=== PATIENT | male | born 1970 | race Caucasian/White ===

== ENCOUNTER 2019-11-16 09:16 | Emergency (ER) | payer BC, OTHER ==
[2019-11-16 09:32] VITALS: BMI 32.5
--- NOTE | 2019-11-16 10:05 | PDOC ---
History of Present Illness - General Chief Complaint: Shortness of Breath Stated Complaint: DIFFICULTY BREATHING Time Seen by Provider: 11/16/19 09:42 - History of Present Illness Initial Comments: 11/16/19 10:02 CHIEF COMPLAINT: SOB HISTORY OF PRESENT ILLNESS: 48 yo with hx of sleep apnea presents to ED with concern for SOB. 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 Patient states he has the "breathing machine" but doesn't always use it and was not using it overnight. He did try to use the machine after but "felt like nothing could get in" and was unable to go back to sleep afterwards due to be feeling anxious he wasn't able to breathe. Denies coughing, fever, runny nose "but probably congestion." Denies any current chest pain or SOB. Primary care doctor: Dr. Ku. No recent travel or sick contacts. PAST MEDICAL HISTORY: sleep apnea FAMILY HISTORY: Denies SOCIAL HISTORY: Denies tobacco, alcohol, illicit drug use. SURGICAL HISTORY: Denies ALLERGIES: No known drug allergies REVIEW OF SYSTEMS General/Constitutional: Denies fever or chills. Denies weakness, weight change. HEENT: Denies change in vision. Denies ear pain or discharge. Denies sore throat. Cardiovascular: Denies chest pain or shortness of breath. Respiratory: SOB when waking this morning, now asymptomatic. Denies cough, wheezing, or hemoptysis. Gastrointestinal: Denies nausea, vomiting, diarrhea or constipation. Denies rectal bleeding. Genitourinary: Denies dysuria, frequency, or change in urination. Musculoskeletal: Denies joint or muscle swelling or pain. Denies neck or back pain. Skin and breasts: Denies rash or easy bruising. Neurologic: Denies headache, vertigo, loss of consciousness, or loss of sensation. Psychiatric: Denies depression or anxiety. PHYSICAL EXAM General Appearance: Well-appearing, appropriately dressed. No apparent distress , no intoxication. HEENT: Swollen turbinates. EOMI, PERRLA, normal voice, TMs normal, pharynx normal. No conjunctival pallor. No photophobia, scleral icterus. Neck: Supple. Trachea midline. No tenderness, rigidity, carotid bruit, stridor , lymphadenopathy, or thyromegaly. Respiratory/Chest: Lungs CTAB. No shortness of breath, chest tenderness, respiratory distress, accessory muscle use. No crackles, rales, rhonchi, stridor , wheezing, dullness Cardiovascular: RRR. S1, S2. No JVD, murmur, bradycardia, tachycardia. Vascular Pulses: Dorsalis-Pedis (R): 2+, Dorsalis-Pedis (L): 2+ Gastrointestinal/Abdominal: Normal bowel sounds. Abdomen soft, non-distended. No tenderness or rebound tenderness. No organomegaly, pulsatile mass, guarding , hernia, hepatomegaly, splenomegaly. Lymphatic: No adenopathy, tenderness. Musculoskeletal/Extremities: Normal inspection. FROM of all extremities, normal capillary refill. Pelvis Stable. No CVA tenderness. No tenderness to extremities, pedal edema, swelling, erythema or deformity. Integumentary: Appropriate color, dry, warm. 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 Fully oriented, alert. Appropriate mood/affect. Motor strength 5/5. No appreciable EOM palsy, facial droop or sensory deficit. Past History - Past Medical History Allergies/Adverse Reactions: Allergies Allergy/AdvReac Type Severity Reaction Status Date / Time No Known Drug Allergies Allergy Verified 11/16/19 09:26 Home Medications: Ambulatory Orders Atorvastatin Calcium [Lipitor] 20 mg PO HS 11/16/19 Esomeprazole Magnesium [Nexium 24Hr] 40 mg PO DAILY 11/16/19 Lisinopril/Hydrochlorothiazide [Lisinopril-Hctz 20-12.5 mg Tab] 1 each PO DAILY 11/16/19 Varenicline Tartrate [Chantix] 1 tab PO BID PRN 11/16/19 Anemia: No Asthma: No Cancer: No Cardiac Disorders: No CVA: No COPD: No CHF: No Dementia: No Diabetes: No GI Disorders: No Disorders: Yes (GERD) HTN: No Hypercholesterolemia: Yes Kidney Stones: Yes Liver Disease: No Seizures: No Thyroid Disease: No Other medical history: sleep apnea - Surgical History Abdominal Surgery: No Appendectomy: No Cardiac Surgery: No Cholecystectomy: No Lung Surgery: No Neurologic Surgery: No Orthopedic Surgery: No - Psycho Social/Smoking Cessation Hx Smoking History: Current some day smoker Have you smoked in the past 12 months: Yes Number of Cigarettes Smoked Daily: 15 Information on smoking cessation initiated: No 'Breaking Loose' booklet given: 06/07/12 Hx Alcohol Use: Yes ("4 times a week") Drug/Substance Use Hx: No Substance Use Type: None Hx Substance Use Treatment: No *Physical Exam - Vital Signs Last Vital Signs Temp Pulse Resp BP Pulse Ox 98.4 F 73 18 133/79 97 11/16/19 09:30 11/16/19 09:30 11/16/19 09:30 11/16/19 09:30 11/16/19 09:30 ED Treatment Course - RADIOLOGY Radiology Studies Ordered: Category Date Time Status CHEST PA & LAT [RAD] Stat Radiology 11/16/19 09:43 Ordered Medical Decision Making - Medical Decision Making 11/17/19 12:37 48 yo with hx of sleep apnea presents to ED with concern for SOB. -ekg -cxr EKG normal, CXR negative. Patient requires f/u with PCP and sleep center for continued monitoring of sleep apnea. Advised patient to take medication as prescribed and follow up with PCP within the week. Advised patient of signs and symptoms for return to ED. Patient verbalized understanding and agrees to plan. Discharge - Discharge Information Problems reviewed: Yes Clinical Impression/Diagnosis: Sleep apnea Qualifiers: Sleep apnea type: unspecified type Qualified Code(s): G47.30 - Sleep apnea, unspecified Condition: Stable Disposition: HOME - Admission No - Follow up/Referral Referrals: Cristóbal Ku MD [Primary Care Provider] - Cheng Pascual MD, MD [Staff Physician] - - Patient Discharge Instructions Patient Printed Discharge Instructions: DI for Obstructive Sleep Apnea -- Adult - Post Discharge Activity
[2019-11-16 11:33] VITALS: BP 130/68; PULSE 75; TEMP 98.5
--- NOTE | 2019-11-16 13:28 | EKG ---
Test Reason : Blood Pressure : / mmHG Vent. Rate : 071 BPM Atrial Rate : 071 BPM P-R Int : 196 ms QRS Dur : 098 ms QT Int : 362 ms P-R-T Axes : 054 044 044 degrees QTc Int : 393 ms NORMAL SINUS RHYTHM NORMAL ECG WHEN COMPARED WITH ECG OF 20-JUL-2009 10:53, NO SIGNIFICANT CHANGE WAS FOUND Confirmed by MD JEREMIAS, MARGARITO ([id number]) on 11/16/2019 1:28:43 PM Referred By: Confirmed By:MARGARITO MCDOWELL MD
== END 2019-11-16 11:33 | disposition home or self-care (01) ==
LOC: JER 09:16
DX: G47.30 Sleep apnea, unspecified (principal); E78.00 Pure hypercholesterolemia, unspecified; K21.9 Gastro-esophageal reflux disease without esophagitis; F17.210 Nicotine dependence, cigarettes, uncomplicated; Z87.442 Personal history of urinary calculi
CPT/HCPCS: 71046-TC-FY; 93005; 93010; 99282-25

== ENCOUNTER 2019-11-24 10:18 | Emergency (ER) | payer OTHER ==
[2019-11-24 10:28] VITALS: BMI 32.5
--- NOTE | 2019-11-24 10:45 | PDOC ---
History of Present Illness - General Chief Complaint: Shortness of Breath Stated Complaint: SHORTNESS OF BREATH Time Seen by Provider: 11/24/19 10:32 - History of Present Illness Initial Comments: HPI: 48yo M with PMH of obstructive sleep apnea, HTN, HLD, GERD, presenting with shortness of breath. Patient states he woke up this morning feeling like he "couldn't take a full breath." No cough or chest pain. Per chart review, patient presented one week ago for similar complaint. EKG and CXR at that time did not indicate acute pathology. 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 Was instructed to use his CPAP but has had difficulties with adherence to this sleep regimen stating the mask does not feel well and that it feels like it is suffocating him when he uses it. Denies sick contacts or recent travel. No hemoptysis, no recent surgical history , no recent immobilization, no hormone use, no history of DVT or PE. No fevers or chills. PCP: Dr. Ku ROS: Constitutional: no fever, no chills HEENT: no throat pain, no dysphagia Cardiovascular: no chest pain, no palpitations Respiratory: no cough, +shortness of breath Gastrointestinal: no abdominal pain, no diarrhea Genitourinary: no dysuria, no hematuria Musculoskeletal: no myalgia, no arthralgia Skin: no rash, no itching Neurologic: no headache, no weakness PE: General: Awake, alert, and fully oriented, in no acute distress Head: No signs of trauma Eyes: EOMI, sclera anicteric ENT: Moist mucus membranes Neck: Normal ROM, supple Lungs: Lungs clear, Normal breath sounds Cardio: Regular rhythm, S1 and S2 present Abdomen: Soft, nontender. No guarding, no rebound, no masses Extremities: Normal range of motion, Distal pulses present, No calf tenderness SKIN: Warm, Dry, normal turgor Neurologic: Cranial nerves II through XII grossly intact. Normal speech ED Course/MDM: DDX including but not limited to hypercarbia due to RAMIRO with CPAP non-adherence , ACS, PE, PNA, anemia, metabolic derangement Labs, EKG, CXR 11/24/19 10:44 EKG: rate 89, QTc 411, NSR, no acute change from EKG on 11/16/19 11/24/19 11:23 CBC WBC 8.4 K/mm3 (4.0-10.0) 11/24/19 11:25 RBC 4.61 M/mm3 (4.00-5.60) 11/24/19 11:25 Hgb 14.0 GM/dL (11.7-16.9) 11/24/19 11:25 Hct 41.0 % (35.4-49) 11/24/19 11:25 MCV 88.9 fl (80-96) 11/24/19 11:25 MCH 30.4 pg (25.7-33.7) 11/24/19 11:25 MCHC 34.2 g/dl (32.0-35.9) 11/24/19 11:25 RDW 13.3 % (11.9-15.9) 11/24/19 11:25 Plt Count 250 K/MM3 (134-434) D 11/24/19 11:25 MPV 8.3 fl (7.5-11.1) 11/24/19 11:25 Absolute Neuts (auto) 6.2 K/mm3 (1.5-8.0) 11/24/19 11:25 Neutrophils % 73.2 % (42.8-82.8) 11/24/19 11:25 Lymphocytes % 19.1 % (8-40) D 11/24/19 11:25 Monocytes % 6.7 % (3.8-10.2) 11/24/19 11:25 Eosinophils % 0.5 % (0-4.5) 11/24/19 11:25 Basophils % 0.5 % (0-2.0) 11/24/19 11:25 Nucleated RBC % 0 % (0-0) 11/24/19 11:25 No leukocytosis CMP Sodium 139 mmol/L (136-145) 11/24/19 11:25 Potassium 4.1 mmol/L (3.5-5.1) 11/24/19 11:25 Chloride 105 mmol/L (98-107) 11/24/19 11:25 Carbon Dioxide 25 mmol/L (21-32) 11/24/19 11:25 Anion Gap 9 MMOL/L (8-16) 11/24/19 11:25 BUN 14.7 mg/dL (7-18) 11/24/19 11:25 Creatinine 0.9 mg/dL (0.55-1.3) 11/24/19 11:25 Est GFR (CKD-EPI)AfAm 115.83 11/24/19 11:25 Est GFR (CKD-EPI)NonAf 99.94 11/24/19 11:25 Random Glucose 127 mg/dL (74-106) H 11/24/19 11:25 Calcium 8.8 mg/dL (8.5-10.1) 11/24/19 11:25 Total Bilirubin 0.4 mg/dL (0.2-1) 11/24/19 11:25 AST 27 U/L (15-37) 11/24/19 11:25 ALT 48 U/L (13-61) 11/24/19 11:25 Alkaline Phosphatase 106 U/L (45-117) 11/24/19 11:25 Troponin I < 0.02 ng/ml (0.00-0.05) 11/24/19 11:25 B-Natriuretic Peptide 14.5 pg/ml (5-125) 11/24/19 11:25 Total Protein 7.1 g/dl (6.4-8.2) 11/24/19 11:25 Albumin 3.9 g/dl (3.4-5.0) 11/24/19 11:25 Electrolytes unremarkable Cr normal BNP normal POCUS unremarkable; with grossly normal LV function CXR as read by radiology: " EXAM#: TYPE/EXAM: RESULT: [id number] RAD/CHEST PA LAT Chest: Shortness of breath 2 views of the chest reveal clear well aerated lungs, slight rotation to the left, normally some sharp angles. The bones and soft tissues are intact. An acute process is not seen. Since 11/16/2019 there is no change of an adverse nature. Impression: No acute chest pathology. Reported By: Ian Oquendo MD 11/24/19 1467 " Given workup, low suspicion for acute cardiopulmonary pathology Patient's sensation of shortness of breath likely due to RAMIRO with CPAP non- adherence Instructed patient to use CPAP To follow up with PCP and sleep medicine specialist Return precautions Stable for discharge 11/24/19 12:42 Past History - Past Medical History Allergies/Adverse Reactions: Allergies Allergy/AdvReac Type Severity Reaction Status Date / Time No Known Drug Allergies Allergy Verified 11/24/19 10:28 Home Medications: Ambulatory Orders Atorvastatin Calcium [Lipitor] 20 mg PO HS 11/16/19 Esomeprazole Magnesium [Nexium 24Hr] 40 mg PO DAILY 11/16/19 Lisinopril/Hydrochlorothiazide [Lisinopril-Hctz 20-12.5 mg Tab] 1 each PO DAILY 11/16/19 Varenicline Tartrate [Chantix] 1 tab PO BID PRN 11/16/19 Anemia: No Asthma: No Cancer: No Cardiac Disorders: No CVA: No COPD: No CHF: No Dementia: No Diabetes: No GI Disorders: No Disorders: Yes (GERD) HTN: No Hypercholesterolemia: Yes Kidney Stones: Yes Liver Disease: No Seizures: No Thyroid Disease: No - Surgical History Abdominal Surgery: No Appendectomy: No Cardiac Surgery: No Cholecystectomy: No Lung Surgery: No Neurologic Surgery: No Orthopedic Surgery: No - Psycho Social/Smoking Cessation Hx Smoking History: Never smoked Have you smoked in the past 12 months: Yes Number of Cigarettes Smoked Daily: 15 'Breaking Loose' booklet given: 06/07/12 Hx Alcohol Use: Yes ("4 times a week") Drug/Substance Use Hx: No Substance Use Type: None Hx Substance Use Treatment: No *Physical Exam - Vital Signs Last Vital Signs Temp Pulse Resp BP Pulse Ox 97.3 F L 96 H 18 115/83 98 11/24/19 10:26 11/24/19 10:26 11/24/19 10:26 11/24/19 10:26 11/24/19 10:26 ED Treatment Course - LABORATORY CBC & Chemistry Diagram: 11/24/19 11:25 11/24/19 11:25 Discharge - Discharge Information Problems reviewed: Yes Clinical Impression/Diagnosis: Sleep apnea Qualifiers: Sleep apnea type: unspecified type Qualified Code(s): G47.30 - Sleep apnea, unspecified Condition: Stable Disposition: HOME - Follow up/Referral Referrals: Cristóbal Ku MD [Staff Physician] - Cheng Pascual MD, MD [Staff Physician] - - Patient Discharge Instructions Patient Printed Discharge Instructions: DI for Continuous Positive Airway Pressure Additional Instructions: You came into the emergency department after feeling short of breath. Lab work , Xray, and EKG did not indicate acute pathology. You must use your CPAP machine whenever you go to sleep. Continue taking home medications as prescribed by your physician. Follow up with your primary care physician within 72 hours. Call and make an appointment to further evaluate your weakness. Your workup is not complete until you do so. Immediate medical attention is required if you have: any chest pain, palpitations, shortness of breath, severe headaches, changes in vision, episodes of fainting, focal numbness or weakness, any severe abdominal pain, any black tarry stool, or any new or concerning symptoms. If you think you are having an emergency, call for emergency medical services or present to the emergency department right away. - Post Discharge Activity
[2019-11-24 11:47] LABS: VENOUS PC02 40.6 mmHg (38-52); VENOUS PH 7.39 (7.31-7.41)
[2019-11-24 11:48] LABS: BASO % 0.5 % (0-2.0); EOS % 0.5 % (0-4.5); LYMPH % 19.1 % (8-40); MCH 30.4 pg (25.7-33.7); MCHC 34.2 g/dl (32.0-35.9); MEAN CELL VOLUME 88.9 fl (80-96); MEAN PLT VOLUME 8.3 fl (7.5-11.1); MONO % 6.7 % (3.8-10.2); NEUT % 73.2 % (42.8-82.8); PLATELET COUNT 250 K/MM3 (134-434); RBC 4.61 M/mm3 (4.00-5.60); RDW 13.3 % (11.9-15.9); WHITE BLOOD COUNT 8.4 K/mm3 (4.0-10.0)
[2019-11-24 11:58] LABS: VENOUS PO2 < 49 mmHg (28-48)
[2019-11-24 12:11] LABS: ALBUMIN 3.9 g/dl (3.4-5.0); BILIRUBIN,TOTAL 0.4 mg/dL (0.2-1); BLOOD UREA NITROGEN 14.7 mg/dL (7-18); CALCIUM 8.8 mg/dL (8.5-10.1); CREATININE 0.9 mg/dL (0.55-1.3); N-TERMINAL BNP 14.5 pg/ml (5-125); POTASSIUM 4.1 mmol/L (3.5-5.1); TOT PROT 7.1 g/dl (6.4-8.2)
[2019-11-24 13:11] VITALS: BP 116/72; PULSE 84; TEMP 98.2
--- NOTE | 2019-11-24 16:58 | EKG ---
Test Reason : Blood Pressure : / mmHG Vent. Rate : 089 BPM Atrial Rate : 089 BPM P-R Int : 198 ms QRS Dur : 098 ms QT Int : 338 ms P-R-T Axes : 032 036 048 degrees QTc Int : 411 ms NORMAL SINUS RHYTHM NORMAL ECG WHEN COMPARED WITH ECG OF 16-NOV-2019 09:30, NO SIGNIFICANT CHANGE WAS FOUND Confirmed by DANNY FIELD MD ([id number]) on 11/24/2019 4:57:40 PM Referred By: Confirmed By:DANNY FIELD MD
--- NOTE | 2019-11-24 17:25 | PDOC ---
Documentation entered by Marian Aguilar SCRIBE, acting as scribe for Gautam Han MD. Gautam Han MD: This documentation has been prepared by the Lauren mar Joy, SCRIBE, under my direction and personally reviewed by me in its entirety. I confirm that the documentation accurately reflects all work, treatment, procedures, and medical decision making performed by me. 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 As per patient, he woke up in the morning feeling like he could not take in a full breath. The symptoms lasted for less than an hour. Patient has been to the ED x1 week prior for similar symptoms. Patient states he was not compliant in using his CPAP mask last night as he went to bed too late. He has been wearing it for a week with no SOB. No sick contacts or recent travel. Denies fevers, chills, cough or chest pain. Denies any other symptoms. Allergies: NKDA PCP: Dr. Workman - Physicial Exam PE: 11/24/19 10:55 GENERAL: Awake, alert, and fully oriented, in no acute distress EYES: PERRLA, EOMI, sclera anicteric, conjunctiva clear ENT: Oropharynx clear without exudates. Moist mucosa NECK: Normal ROM, supple, no lymphadenopathy, JVD, or masses LUNGS: Breath sounds equal, clear to auscultation bilaterally. No wheezes, and no crackles HEART: Regular rate and rhythm, normal S1 and S2, no murmurs, rubs or gallops ABDOMEN: Soft, nontender, normoactive bowel sounds. No guarding, no rebound. No masses EXTREMITIES: Normal range of motion, no edema. No clubbing or cyanosis. No cords , erythema, or tenderness NEUROLOGICAL: Normal speech, cranial nerves intact, equal strength and sensation b/l SKIN: Warm, Dry, normal turgor, no rashes or lesions noted. - Medical Decision Making 11/24/19 13:33 48-year-old male with a history of obstructive sleep apnea, newly on CPAP for the last week presents to the emergency department with shortness of breath this morning when he woke up that has since resolved. The sxs lasted for less than 1 minute. Patient admits to not putting his CPAP mask on last night because he went to sleep too late. He denies any current shortness of breath. Denies any shortness of breath this entire week when he had his CPAP mask on overnight. He has no associated symptoms. In the emergency department he is well-appearing in no acute distress with clear lungs. His vitals are within normal limits. His labs including a blood gas are unremarkable. His chest x-ray is clear. Patient observed in the emergency department for 3 hours with no recurrent symptoms. Impression is shortness of breath secondary to CPAP mask noncompliance. Patient instructed to wear CPAP mask every night. Strict return precautions discussed. 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 He is clinically stable for discharge home. I discussed the physical exam findings, ancillary test results and final diagnoses with the patient. I answered all of the patient's questions. The patient was satisfied with the care received and felt comfortable with the discharge plan and treatment plan. The patient will call their primary care physician within 24 hours to arrange follow-up and will return to the Emergency Department with any new, persistent or worsening symptoms.
== END 2019-11-24 13:41 | disposition home or self-care (01) ==
LOC: JER 10:18
DX: G47.30 Sleep apnea, unspecified (principal); E78.00 Pure hypercholesterolemia, unspecified; K21.9 Gastro-esophageal reflux disease without esophagitis; Z87.442 Personal history of urinary calculi
CPT/HCPCS: 36415; 71046-TC-FY; 80053; 82803; 83880; 84484; 85025; 93005; 93010; 99283-25

== ENCOUNTER 2023-08-07 07:07 | Emergency (ER) | payer BC, OTHER ==
[2023-08-07 07:15] VITALS: BMI 30.7
[2023-08-07] MEDS ORDERED: ALBUTEROL SO4 2.5/IPRATROPIUM 0.5 INH SOL 3 ML VIAL.NEB. NEB ONE ×2 (07:41→08:02)
[2023-08-07 09:19] LABS: BASO % 1.1 % (0-2.0); EOS % 4.9 % (0-4.5); HEMATOCRIT 40.4 % (35.4-49); HEMOGLOBIN 13.6 GM/dL (11.7-16.9); LYMPH % 30.4 % (8-40); MCH 31.5 pg (25.7-33.7); MCHC 33.7 g/dl (32.0-35.9); MEAN CELL VOLUME 93.3 fl (80-96); MEAN PLT VOLUME 8.9 fl (7.5-11.1); MONO % 7.7 % (3.8-10.2); NEUT % 55.9 % (42.8-82.8); PLATELET COUNT 219 10^3/uL (134-434); RBC 4.33 M/mm3 (4.00-5.60); RDW 13.7 % (11.9-15.9); WHITE BLOOD COUNT 6.8 K/mm3 (4.0-10.0)
[2023-08-07 09:23] LABS: VENOUS BASE EXCESS -2.2 mmol/L (-2-2); VENOUS O2 SATURATION 79.1 % (70-80); VENOUS PCO2 39.9 mmHg (38-52); VENOUS PH 7.373 (7.310-7.410)
[2023-08-07 09:44] LABS: POTASSIUM 3.9 mmol/L (3.5-5.1)
[2023-08-07 09:46] LABS: CALCIUM 8.4 mg/dL (8.5-10.1)
[2023-08-07 09:47] LABS: ALBUMIN 3.7 g/dl (3.4-5.0); BLOOD UREA NITROGEN 9.8 mg/dL (7-18); MAGNESIUM 1.9 mg/dL (1.8-2.4)
[2023-08-07 09:50] LABS: CREATININE 0.7 mg/dL (0.55-1.3)
[2023-08-07 09:51] LABS: BILIRUBIN,TOTAL 0.3 mg/dL (0.2-1); TOT PROT 6.2 g/dl (6.4-8.2)
[2023-08-07 10:52] VITALS: TEMP 98.7
[2023-08-07 12:38] VITALS: BP 132/81; PULSE 69; RESP 18
== END 2023-08-07 12:38 | disposition home or self-care (01) ==
LOC: JER 07:07
PROC: 3E0F7GC Introduction of Other Therapeutic Substance into Respiratory Tract, Via Natural or Artificial Opening (ICD-10-PCS; principal; 2023-08-07)
DX: R06.02 Shortness of breath (principal); R09.81 Nasal congestion; Z20.822 Contact with and (suspected) exposure to COVID-19
CPT/HCPCS: 0241U-QW; 36415; 71046-TC-FY; 80053; 82803; 83735; 84484; 85025; 93005; 93010; 99285-25